=== PATIENT | female | born 2000 | race Hispanic/Latino ===

== ENCOUNTER 2018-07-23 20:14 | Emergency (ER) | payer OTHER ==
[2018-07-23 21:02] LABS: #Basophils 0.1 thou/uL (0.0-0.2); #Eosinphils 0.4 thou/uL (0.0-0.7); #Lymphocytes 1.6 thou/uL (1.20-3.40); #Monocytes 0.7 thou/uL (0.11-0.59); #Neutrophils 11.3 thou/uL (1.40-6.50); %Basophils 0.5 % (0.0-1.0); %Eosinophils 2.7 % (0.0-10.0); %Lymphocytes 11.4 % (28.0-48.0); %Monocytes 5.3 % (0.0-4.0); %Neutrophils 80.2 % (31.0-61.0); Hemoglobin 15.1 g/dL (12.0-16.0); Mean Corpuscular HGB CONC 33.3 g/dL (32.0-36.0); Mean Corpuscular Hemoglobin 27.5 pg (25.0-35.0); Mean Corpuscular Volume 82.6 fL (78.0-98.0); Mean Platelet Volume 8.5 fL (7.4-10.4); Platelet Count 325 thou/uL (130-400); RBC Distribution Width 13.1 % (11.5-14.5); Red Blood Cell (RBC) Count 5.49 mill/uL (4.00-5.20); White Blood Cell (WBC) Count 14.1 thou/uL (4.8-10.8)
[2018-07-23] MEDS ORDERED: Ketorolac Tromethamine 30 MG/ML VIAL ONE (21:06)
[2018-07-23] MEDS ORDERED: Ondansetron HCl/PF 4 MG/2 ML Vial ONE (21:06)
[2018-07-23 21:20] LABS: ALT (SGPT) 73 U/L (8-55); AST (SGOT) 152 U/L (5-30); Albumin 4.5 g/dL (3.5-5.0); Alkaline Phosphatase 116 U/L (40-150); Anion Gap 13 mmol/L (10-20); BUN (Urea Nitrogen) 12 mg/dL (8.4-21.0); Bilirubin, Total 0.4 mg/dL (0.2-1.2); Calc. Creatinine Clearance 0 mL/min (70-130); Calcium 9.9 mg/dL (7.8-10.44); Carbon Dioxide 27 mmol/L (22-29); Chloride 102 mmol/L (98-107); Estimated GFR-MDRD Greater than 90; Globulin 3.8 g/dL (2.4-3.5); Glucose 104 mg/dL (70-105); Lipase 38 U/L (8-78); Potassium 3.9 mmol/L (3.5-5.1); Protein, Total 8.3 g/dL (6.0-8.3); Sodium 138 mmol/L (136-145)
[2018-07-23 21:33] LABS: Clarity Cloudy (Clear)
[2018-07-23 21:34] LABS: Leukocyte Small (Negative); Nitrite Negative (Negative); Protein, Urine (Dipstick) Trace mg/dL (Neg-Trace); Specific Gravity, Urine 1.025 (1.005-1.030); pH, Urine 5.5 (5.0-9.0)
[2018-07-23 21:35] LABS: Bilirubin Negative (Negative); Blood, Urine Negative (Negative); Glucose, Urine (Dipstick) Negative (Negative); Urobilinogen 0.2 mg/dL (0.2-1.0)
[2018-07-23 21:36] LABS: Pregnancy Test - Urine (BHCG) Negative (Negative); Pregu Control Background? CLEAR/WHITE (CLR/WHITE); Pregu Control Bar Appear? YES (CONTROL BAR); Specific Gravity 1.025 (1.002-1.036)
[2018-07-23 21:37] LABS: RBC/HPF 0-3 HPF (0-3)
[2018-07-23 21:38] LABS: Bacteria/HPF 3+ HPF (None Seen); Hyaline Casts/LPF 0-3 HYALINE CAST LPF (0-3 Hyaline); Squamous Epithelial 0-3 HPF (0-3)
--- NOTE | 2018-07-23 23:36 | CT ---
CT ABDOMEN AND PELVIS WITH CONTRAST: 07/23/[address] of the abdomen and pelvis was performed for evaluation of epigastric pain. Axial slices wer e acquired, then coronal and sagittal reconstructions were done. The lung bases are clear. The liver, spleen, pancreas, gallbladder, adrenal glands, kidneys and abdom inal aorta all appear normal. Bowel is nondistended with no sign of wall thickening or inflammatory change. No free air or free fl uid was seen. There may be a slight increase in mesenteric nodes, but the significance is borderline. Sometimes this can signify mild mesenteric adenitis. CT of the pelvis shows no pelvic masses or fluid collections. There may be a small cyst in the left o vary. IMPRESSION: No acute abdominal findings. See comments regarding mesenteric nodes. Report in agreement with preliminary reading by Agustín. POS: HOME
== END 2018-07-23 23:22 | disposition short-term general hospital (02) ==
LOC: BURERS 20:14
DX: R10.811 Right upper quadrant abdominal tenderness (principal)
CPT/HCPCS: 74177; 80053; 81003; 81015; 81025; 83690; 85025; 96361; 96374; 96375; J1885; J2405